=== PATIENT | male | born 1940 ===

== ENCOUNTER 2019-02-23 11:05 | Emergency (ER) | payer MEDICARE ==
[2019-02-23] MEDS ORDERED: DILTIAZEM 25MG/5ML VIAL IV ONE (11:28)
[2019-02-23 11:37] LABS: BASO % 0.3 % (0-6); EOS % 1.4 % (0-6); GRAN % 69.3 % (47-80); HEMATOCRIT 44.1 % (42.0-52.0); LYMPH % 19.9 % (16-45); MEAN CELL VOLUME 95.5 fl (81-97); MEAN CORPUSCULAR HEMOGLOBIN 30.3 pg (27-33); MEAN CORPUSCULAR HGB CONC 31.7 g/dl (32-36); MEAN PLATELET VOLUME 9.9 fl (7.4-10.4); MONO % 9.1 % (0-9); PLATELET COUNT 380 K/uL (130-400); RED BLOOD COUNT 4.62 M/uL (4.40-5.70); WHITE BLOOD COUNT W/O DIFF 12.1 K/uL (4.2-12.2)
[2019-02-23 11:48] LABS: CREATININE 1.8 mg/dL (0.7-1.2)
[2019-02-23 11:49] LABS: BILIRUBIN,TOTAL 0.3 mg/dL (0.2-1.0); TOTAL PROTEIN 7.3 g/dL (6.6-8.7)
[2019-02-23] MEDS ORDERED: DIGOXIN 500MCG/2ML AMP IVP ONE (11:49)
[2019-02-23] MEDS ORDERED: HEPARIN SODIUM 1000 UNIT/1 ML 10ML VIAL IVP ONE (11:49)
[2019-02-23 11:54] LABS: ALB/GLOB RATIO 1.4 (1.1-1.8); ALBUMIN 4.3 g/dL (4.0-5.0)
--- NOTE | 2019-02-23 11:59 | Emergency Department Record ---
History of Present Illness - General Chief Complaint: Dizziness Stated Complaint: LIGHTHEADED Time Seen by Provider: 02/23/19 11:25 Source: Patient Mode of Arrival: Ambulatory Limitations: No limitations - History of Present Illness Initial Comments: pt awakened w kightheadedness htis am. no pain MD Complaint: Dizziness, Lightheadedness Onset/Timin -: Hour(s) Timing: Awoke with symptoms Description: Difficulty walking, Lightheadedness History of Same: No History of Trauma: No Improves With: Nothing Worsens With: Nothing Associated Symptoms: Denies other symptoms - Yasmani Coma Scale Eye Response: (4) Open spontaneously Motor Response: (6) Obeys commands Verbal Response: (5) Oriented Yasmani Total: 15 - Symptoms of Stroke Onset of Symptoms Date: 02/23/19 Symptom Onset Unknown: Yes Symptoms of stroke: Dizziness, Unsteady When Walking - Related Data Home Medications Medication Instructions Recorded Confirmed Last Taken Bisoprol/Hydrochlorothiazide 1 each PO DAILY 02/23/19 02/23/19 02/23/19 [Bisoprolol-Hctz 5-6.25 mg Tab] Lisinopril 30 mg PO DAILY 02/23/19 02/23/19 02/23/19 Allergies Allergy/AdvReac Type Severity Reaction Status Date / Time No Known Drug Allergies Allergy Verified 02/23/19 11:25 Travel Screening - Travel/Exposure Within Last 30 Days Have you traveled within the last 30 days?: No Review of Systems Reviewed: No additional complaints except as noted below Constitutional: Reports: As per HPI, Weakness. Denies: Chills, Fever, Malaise, Night sweats, Weight change Eyes: Reports: As per HPI. Denies: Eye discharge, Eye pain, Photophobia, Vision change ENT: Reports: As per HPI. Denies: Congestion, Dental pain, Ear pain, Epistaxis , Hearing loss, Throat pain Respiratory: Reports: As per HPI. Denies: Cough, Dyspnea, Hemoptysis, Stridor, Wheezes Cardiovascular: Reports: As per HPI. Denies: Arrhythmia, Chest pain, Dyspnea on exertion, Edema, Murmurs, Orthopnea, Palpitations, Paroxysmal nocturnal dyspnea, Rheumatic Fever, Syncope Endocrine: Reports: As per HPI. Denies: Fatigue, Heat or cold intolerance, Polydipsia, Polyuria Gastrointestinal: Reports: As per HPI. Denies: Abdominal pain, Constipation, Diarrhea, Hematemesis, Hematochezia, Melena, Nausea, Vomiting Genitourinary: Reports: As per HPI. Denies: Dysuria, Frequency, Hematuria, Incontinence, Retention, Testicular pain, Testicular mass, Urgency Musculoskeletal: Reports: As per HPI. Denies: Arthralgia, Back pain, Gout, Joint swelling, Myalgia, Neck pain Skin: Reports: As per HPI. Denies: Bruising, Change in color, Change in hair/ nails, Lesions, Pruritus, Rash Neurological: Reports: As per HPI. Denies: Abnormal gait, Confusion, Headache, Numbness, Paresthesias, Seizure, Tingling, Tremors, Vertigo, Weakness Psychiatric: Reports: As per HPI. Denies: Anxiety, Auditory hallucinations, Depression, Homicidal thoughts, Suicidal thoughts, Visual hallucinations Hematological/Lymphatic: Reports: As per HPI. Denies: Anemia, Blood Clots, Easy bleeding, Easy bruising, Swollen glands Past Medical History - SOCIAL HISTORY Smoking Status: Current every day smoker Alcohol Use: None Drug Use: None - RESPIRATORY Hx Respiratory Disorders: No - CARDIOVASCULAR Hx Cardio Disorders: Yes Hx Hypertension: Yes - NEURO Hx Neuro Disorders: No - GI Hx GI Disorders: No - Hx Genitourinary Disorders: No - ENDOCRINE Hx Endocrine Disorders: No - MUSCULOSKELETAL Hx Musculoskeletal Disorders: No - PSYCH Hx Psych Problems: No - HEMATOLOGY/ONCOLOGY Hx Hematology/Oncology Disorders: No Family Medical History Any Significant Family History?: No Physical Exam - General General Appearance: Alert, Oriented x3, Cooperative, Moderate distress - Head Head exam: Normal inspection - Eye Eye exam: Normal appearance, PERRL, EOMI Pupils: Normal accommodation - ENT ENT exam: Normal exam, Mucous membranes moist, Normal external ear exam, Normal orophraynx, TM's normal bilaterally Ear exam: Normal external inspection. negative: External canal tenderness Nasal Exam: Normal inspection. negative: Discharge, Sinus tenderness Mouth exam: Normal external inspection, Tongue normal Teeth exam: Normal inspection. negative: Dental caries Throat exam: Normal inspection. negative: Tonsillar erythema, Tonsillar exudate - Neck Neck exam: Normal inspection, Full ROM. negative: Tenderness - Respiratory Respiratory exam: Normal lung sounds bilaterally. negative: Respiratory distress - Cardiovascular Cardiovascular Exam: Normal heart sounds, Irregular rhythm, Tachycardia - GI/Abdominal GI/Abdominal exam: Soft, Normal bowel sounds. negative: Tenderness - Rectal Rectal exam: Deferred - exam: Deferred - Extremities Extremities exam: Normal inspection, Full ROM, Normal capillary refill. negative: Tenderness - Back Back exam: Reports: Normal inspection, Full ROM. Denies: Muscle spasm, Rash noted, Tenderness - Neurological Neurological exam: Alert, CN II-XII intact, Normal gait, Oriented X3 - Psychiatric Psychiatric exam: Normal affect, Normal mood - Skin Skin exam: Dry, Intact, Normal color, Warm Course Vital Signs 02/23/19 02/23/19 02/23/19 11:09 11:33 11:40 Pulse Rate 126 H Pulse Rate [ 123 H 105 H Broth Mixer ] Respiratory 18 18 18 Rate Blood Pressure 69/58 Blood Pressure 70/57 90/53 [Right Arm] Pulse Ox 97 96 100 - Reevaluation(s) Reevaluation #1: 02/23/19 12:00 pt had initial bp of 69/ ekg showed afib at 121. pressure came up to 90 w fluids. cardioversion considered. pt given 5 cardizem rate slowed to 102 but pressure dropped to 69/. cardioversion considered however heart rate does not explain low pressure. d/w dr garcia who agreed to not cardiovert as rate is not explanatory of bp. he suggested digoxin and immediate transfer. Medical Decision Making - Lab Data Result diagrams: 02/23/19 11:20 02/23/19 11:20 Lab Results 02/23/19 Range/Units 11:20 WBC 12.1 (4.2-12.2) K/uL RBC 4.62 (4.40-5.70) M/uL Hgb 14.0 (14.0-18.0) gm/dl Hct 44.1 (42.0-52.0) % MCV 95.5 (81-97) fl MCH 30.3 (27-33) pg MCHC 31.7 L (32-36) g/dl RDW 13.0 (11.5-14.5) % Plt Count 380 (130-400) K/uL MPV 9.9 (7.4-10.4) fl Gran % 69.3 (47-80) % Lymphocytes % 19.9 (16-45) % Monocytes % 9.1 H (0-9) % Eosinophils % 1.4 (0-6) % Basophils % 0.3 (0-6) % Critical Care Time Critical Care Time: Yes Total Critical Care Time: 60 Disposition Disposition: Transfer Clinical Impression: Atrial complex, premature, New onset atrial fibrillation Hypotension Qualifiers: Hypotension type: unspecified hypotension type Qualified Code(s): I95.9 - Hypotension, unspecified Disposition: Acute Care Hospital Transfer Transfer To: [facility] Reason For Transfer: needs recovery operator Accepting Physician: eliud persaud and radha Time Discussed w/Accepting Physician: 11:59 Forms: Patient Portal Access Quality - Quality Measures Quality Measures: N/A - Blood Pressure Screening Does Patient Have Any of the Following: No Blood Pressure Classification: Normal BP Reading Systolic Measurement: 69 Diastolic Measurement: 58 Screening for High Blood Pressure: < Normal BP, F/U Not Required > [G8783]
[2019-02-23] MEDS ORDERED: HEPARIN SODIUM/D5W 25,000 UNITS/500 ML BAG IV SCH (12:00)
== END 2019-02-23 12:48 | disposition short-term general hospital (02) ==
LOC: ER 11:05
DX: I49.1 Atrial premature depolarization (principal); I48.91 Unspecified atrial fibrillation; I95.9 Hypotension, unspecified; F17.210 Nicotine dependence, cigarettes, uncomplicated
CPT/HCPCS: 80053; 84484; 85025; 85730; 93005; 93010; 96365; 96375; 99291

== ENCOUNTER 2019-03-14 14:00 | Emergency (ER) | payer MEDICARE ==
--- NOTE | 2019-03-14 14:11 | Emergency Department Record ---
History of Present Illness - General Chief Complaint: Syncope Stated Complaint: BLOOD PRESSURE,LIGHTHEADED Time Seen by Provider: 03/14/19 14:05 Source: Patient Mode of Arrival: Ambulatory Limitations: No limitations, Physical limitation - History of Present Illness Initial Comments: 78 yo male presents feeling lightheaded on an off the last few days. He presented to the ED for a "blood pressure" check but passed out in triage. He was noted to have an irregular rate with pauses on the monitor. No chest pain. He states he has COPD and seems to be at his baseline shortness of breath. He states he has seen the metaphysician at [facility] recently. The patient was seen on 02/23/19 for afib, hypotension. He was sent to [facility] [facility] for further work up. The patient is on Eliquis for the afib MD Complaint: Loss of consciousness -: Minutes(s) Prodromal Symptoms: Lightheaded -: Second(s) Injuries Sustained Associated with Event: None Current Symptoms: None History: Other Context: At rest Treatments Prior to Arrival: None - [place] Coma Scale Eye Response: (4) Open spontaneously Motor Response: (6) Obeys commands Verbal Response: (5) Oriented Yasmani Total: 15 - Related Data Home Medications Medication Instructions Recorded Confirmed Last Taken Albuterol Sulfate [Proair Hfa] 1 - 2 puff IH .EVERY 4-6 HOURS PRN 03/14/1903/1403/14/19 Apixaban [Eliquis] 5 mg PO BID 03/14/19 03/14/19 03/14/19 Allergies Allergy/AdvReac Type Severity Reaction Status Date / Time No Known Drug Allergies Allergy Verified 02/23/19 11:25 Review of Systems Constitutional: Reports: Weakness. Denies: Chills Eyes: Denies: Eye discharge ENT: Denies: Congestion, Throat pain Respiratory: Reports: Cough, Dyspnea Cardiovascular: Reports: Dyspnea on exertion, Palpitations, Syncope. Denies: Chest pain Endocrine: Reports: Fatigue Gastrointestinal: Denies: Abdominal pain, Diarrhea, Nausea, Vomiting Genitourinary: Denies: Dysuria, Frequency, Hematuria Musculoskeletal: Denies: Arthralgia, Back pain, Myalgia Skin: Denies: Bruising, Change in color, Rash Neurological: Denies: Headache Psychiatric: Denies: Anxiety Hematological/Lymphatic: Denies: Easy bleeding, Easy bruising Past Medical History - SOCIAL HISTORY Smoking Status: Current every day smoker Drug Use: None - RESPIRATORY Hx Respiratory Disorders: No - CARDIOVASCULAR Hx Cardio Disorders: Yes Hx Hypertension: Yes - NEURO Hx Neuro Disorders: No - GI Hx GI Disorders: No - Hx Genitourinary Disorders: No - ENDOCRINE Hx Endocrine Disorders: No - MUSCULOSKELETAL Hx Musculoskeletal Disorders: No - PSYCH Hx Psych Problems: No - HEMATOLOGY/ONCOLOGY Hx Hematology/Oncology Disorders: No Physical Exam - General General Appearance: Alert, Oriented x3, Cooperative, No acute distress Limitations: No limitations - Head Head exam: Atraumatic, Normal inspection - Eye Eye exam: Normal appearance, Conjunctival injection - ENT ENT exam: Normal exam Ear exam: Normal external inspection Nasal Exam: Normal inspection Mouth exam: Normal external inspection - Neck Neck exam: Normal inspection - Respiratory Respiratory exam: Rhonchi, Wheezes. negative: Normal lung sounds bilaterally - Cardiovascular Cardiovascular Exam: Bradycardia, Irregular rhythm, Tachycardia. negative: Regular rate, Normal rhythm, Normal heart sounds Peripheral Pulses: 2+: Radial (R), Radial (L) - GI/Abdominal GI/Abdominal exam: Soft. negative: Tenderness - Rectal Rectal exam: Deferred - exam: Deferred - Extremities Extremities exam: Normal inspection. negative: Pedal edema, Tenderness - Back Back exam: Denies: CVA tenderness (R), CVA tenderness (L) - Neurological Neurological exam: Alert, Oriented X3 - Psychiatric Psychiatric exam: Anxious - Skin Skin exam: Dry, Intact, Normal color, Warm Course - Reevaluation(s) Reevaluation #1: The patient had two brief witnessed syncopal spells on arrival. 03/14/19 14:12 EKG #1: 14:06 Rate: 85 Rhythm: sinus Huntly: N Intervals: Qtc 475 ST segments: no acute changes, ectopy Prior: 03/08 EKG #2: 14:07 Rate: 66 Rhythm: afib Huntly: N Intervals: N ST segments: No acute changes Prior: EMR reviewed from the 02/23/19 visit 03/14/19 14:24 The patient is now resting on the gurney without symptoms in NSR rate 66. 03/14/19 14:35 No acute changes on the CBC or Coags 03/14/19 14:52 The Troponin is normal The CXR was reviewed with hyperinflation 03/14/19 15:21 Dr Florentino accepts the patient for transfer to [facility] at this time Medical Decision Making - Lab Data Result diagrams: 03/14/19 14:10 03/14/19 14:10 Disposition Disposition: Transfer Clinical Impression: Syncope Disposition: Acute Care Hospital Transfer Transfer To: [facility] Reason For Transfer: Syncope Accepting Physician: Mishel Time Discussed w/Accepting Physician: 15:21 Condition: (2) Stable Forms: Patient Portal Access Time of Disposition: 14:21 Quality - Quality Measures Quality Measures: N/A - Blood Pressure Screening Does Patient Have Any of the Following: Active Dx of HTN Blood Pressure Classification: Pre-Hypertensive BP Reading Systolic Measurement: 154 Diastolic Measurement: 82 Screening for High Blood Pressure: Patient Exclusion, Hx of HTN [G9744]
[2019-03-14 14:20] LABS: BASO % 0.3 % (0-6); EOS % 1.7 % (0-6); GRAN % 72.6 % (47-80); HEMATOCRIT 42.7 % (42.0-52.0); HEMOGLOBIN 13.4 gm/dl (14.0-18.0); LYMPH % 17.2 % (16-45); MEAN CELL VOLUME 95.5 fl (81-97); MEAN CORPUSCULAR HGB CONC 31.4 g/dl (32-36); MEAN PLATELET VOLUME 9.2 fl (7.4-10.4); MONO % 8.2 % (0-9); PLATELET COUNT 390 K/uL (130-400); RED BLOOD COUNT 4.47 M/uL (4.40-5.70); RED CELL DISTRIBUTION WIDTH 13.1 % (11.5-14.5); WHITE BLOOD COUNT W/O DIFF 11.3 K/uL (4.2-12.2)
[2019-03-14 14:21] LABS: MEAN CORPUSCULAR HEMOGLOBIN 29.9 pg (27-33)
[2019-03-14 14:32] LABS: BLOOD UREA NITROGEN 24 mg/dL (8-23)
[2019-03-14 14:33] LABS: CREATININE 1.4 mg/dL (0.7-1.2); EST GLOMERULAR FILTRATION RATE 52 mL/min; TOTAL PROTEIN 7.1 g/dL (6.6-8.7)
[2019-03-14 14:34] LABS: PARTIAL THROMBOPLASTIN TIME 28.6 SECONDS (24.5-39.1); PROTHROMBIN TIME (PATIENT) 9.8 SECONDS (9.5-12.1)
[2019-03-14 14:35] LABS: GLUCOSE,RANDOM 155 mg/dL (74-109)
[2019-03-14 14:38] LABS: ALB/GLOB RATIO 1.4 (1.1-1.8); ALBUMIN 4.2 g/dL (4.0-5.0); ALKALINE PHOSPHATASE 89 U/L (40-129); ALT/SGPT 18 U/L (<41); AST/SGOT 22 U/L (10.0-50.0)
--- NOTE | 2019-03-17 09:44 | RADIOLOGY REPORT ---
EXAM: PORTABLE CHEST HISTORY: SYNCOPE. TECHNIQUE: A portable frontal view of the chest was obtained. Comparison: Chest radiograph 05/16/16. FINDINGS: The cardiac silhouette is within normal size limits. The thoracic aorta is calcified. The lungs are hyperinflated. Mild left basilar opacity. Otherwise, no significant focal pulmonary opacification. No significant pleural fluid collection or visible pneumothorax. The lungs are hyperinflated. IMPRESSION: 1. PULMONARY HYPERINFLATION COMPATIBLE WITH COPD. 2. MILD LEFT BASILAR OPACITY MOST SUGGESTIVE OF ATELECTASIS. JOB NUMBER: [id number] [facility]
== END 2019-03-14 16:01 | disposition short-term general hospital (02) ==
LOC: ER 14:00
DX: R55 Syncope and collapse (principal); J44.9 Chronic obstructive pulmonary disease, unspecified; I48.91 Unspecified atrial fibrillation; I10 Essential (primary) hypertension; F17.210 Nicotine dependence, cigarettes, uncomplicated; Z79.01 Long term (current) use of anticoagulants
CPT/HCPCS: 71045; 80053; 83735; 84484; 85025; 85610; 85730; 93005; 93010; 99285

== ENCOUNTER 2019-09-27 16:09 | Inpatient (IN) | payer MEDICARE ==
--- NOTE | 2019-09-27 17:01 | Emergency Department Record ---
History of Present Illness - General Chief Complaint: Hypertension Stated Complaint: HIGH BLOOD PRESSURE Time Seen by Provider: 09/27/19 16:39 Source: Patient Mode of Arrival: Ambulatory Limitations: No limitations - History of Present Illness Initial Comments: The patient is here due to not feeling well this AM. He normally gets up at noon and noticed that he did not feel well. He states he just felt weak all over which is gone now. The patient has had a cough but he states it is chronic. He denies any CP, SOB, ELIAZAR, fever, PATTERSON, back pain, or any balance issues. The patient came to the hospital to get his BP checked and somehow ended up in the ER. Presently he feels back to normal. MD Complaint: Other Onset/Timin -: Hour(s) History of Same: Yes History of Trauma: No Improves With: Nothing Worsens With: Nothing Associated Symptoms: Cough, Weakness - Yasmani Coma Scale Eye Response: (4) Open spontaneously Motor Response: (6) Obeys commands Verbal Response: (5) Oriented Yasmani Total: 15 - Related Data Allergies Allergy/AdvReac Type Severity Reaction Status Date / Time No Known Drug Allergies Allergy Verified 09/27/19 16:17 Travel Screening - Travel/Exposure Within Last 30 Days Have you traveled within the last 30 days?: No Review of Systems Constitutional: Reports: Malaise. Denies: Chills, Fever Eyes: Denies: Eye discharge ENT: Denies: Congestion, Dental pain Respiratory: Reports: Cough. Denies: Dyspnea Cardiovascular: Denies: Arrhythmia, Chest pain Endocrine: Reports: Fatigue Gastrointestinal: Denies: Nausea Genitourinary: Denies: Dysuria Musculoskeletal: Denies: Arthralgia Skin: Denies: Bruising Past Medical History - SOCIAL HISTORY Smoking Status: Current every day smoker Alcohol Use: None Drug Use: None - RESPIRATORY Hx Respiratory Disorders: Yes Hx COPD: Yes - CARDIOVASCULAR Hx Cardio Disorders: Yes Hx Hypertension: Yes Hx Irregular Heartbeat: Yes (afib) - NEURO Hx Neuro Disorders: No - GI Hx GI Disorders: No - Hx Genitourinary Disorders: No - ENDOCRINE Hx Endocrine Disorders: No - MUSCULOSKELETAL Hx Musculoskeletal Disorders: No - PSYCH Hx Psych Problems: No - HEMATOLOGY/ONCOLOGY Hx Hematology/Oncology Disorders: No Family Medical History Any Significant Family History?: No Physical Exam - General General Appearance: Alert, Oriented x3, Cooperative, No acute distress - Head Head exam: Atraumatic, Normocephalic, Normal inspection - Eye Eye exam: Normal appearance, PERRL - ENT Throat exam: Normal inspection. negative: Tonsillar erythema, Tonsillar exudate - Neck Neck exam: Normal inspection, Full ROM. negative: Tenderness - Respiratory Respiratory exam: Decreased breath sounds. negative: Normal lung sounds bilaterally, Accessory muscle use, Respiratory distress, Rhonchi, Stridor, Wheezes - Cardiovascular Cardiovascular Exam: Regular rate, Normal rhythm, Normal heart sounds - GI/Abdominal GI/Abdominal exam: Soft, Normal bowel sounds. negative: Tenderness - Extremities Extremities exam: Normal inspection, Full ROM, Normal capillary refill. negative: Tenderness - Back Back exam: Reports: Normal inspection - Neurological Neurological exam: Alert, Normal gait. negative: Abnormal gait, Motor sensory deficit - Psychiatric Psychiatric exam: negative: Anxious Course Vital Signs 09/27/19 16:11 Temperature 97.5 F L Pulse Rate 101 H Respiratory 28 H Rate Blood Pressure 177/92 Pulse Ox 93 L - Reevaluation(s) Reevaluation #1: The patient is resting comfortably but is still breathing fast with a nasty cough. I did discuss the need for IV Abx's and admission for pneumonia and the patient did agree. I then did discuss the case with Dr. King and he does accept the admission. 09/27/19 18:26 Medical Decision Making - Data Complexity MDM Data: Labs Ordered and/or Reviewed, X-Ray Ordered and/or Reviewed, EKG Ordered and/or Reviewed - Lab Data Result diagrams: 09/27/19 16:20 09/27/19 16:20 - EKG Data -: EKG Interpreted by Pr EKG: No Acute Changes, Unchanged From Previous - Radiology Data Radiology results: Report reviewed (CXR: ground glass opacities RML and LLL.) Disposition Disposition: Admit Clinical Impression: Pneumonia Qualifiers: Pneumonia type: due to unspecified organism Laterality: unspecified laterality Lung location: unspecified part of lung Qualified Code(s): J18.9 - Pneumonia, unspecified organism Disposition: Still a Patient at [facility] Decision to Admit: Admit from ER Decision to Admit Date: 09/27/19 Decision to Admit Time: 18:28 Accepting Physician: Christine Time Discussed w/Accepting Physician: 18:28 Condition: (2) Stable Forms: Patient Portal Access Time of Disposition: 18:28 Quality - Quality Measures Quality Measures: N/A - Blood Pressure Screening View Details: Yes Does Patient Have Any of the Following: Active Dx of HTN Blood Pressure Classification: Hypertensive Reading Systolic Measurement: 177 Diastolic Measurement: 92 Screening for High Blood Pressure: Patient Exclusion, Hx of HTN [G9744]
[2019-09-27 17:13] LABS: ABSOLUTE NEUTROPHIL COUNT 15.58; BASO % 0.1 % (0-6); EOS % 0.4 % (0-6); HEMATOCRIT 46.6 % (42.0-52.0); HEMOGLOBIN 14.7 gm/dl (14.0-18.0); LYMPH % 6.3 % (16-45); MEAN CELL VOLUME 92.8 fl (81-97); MEAN CORPUSCULAR HEMOGLOBIN 29.3 pg (27-33); MEAN CORPUSCULAR HGB CONC 31.5 g/dl (32-36); MEAN PLATELET VOLUME 9.8 fl (7.4-10.4); MONO % 7.3 % (0-9); PLATELET COUNT 400 K/uL (130-400); RED BLOOD COUNT 5.02 M/uL (4.40-5.70); RED CELL DISTRIBUTION WIDTH 13.5 % (11.5-14.5); WHITE BLOOD COUNT W/O DIFF 18.2 K/uL (4.2-12.2)
[2019-09-27 17:23] LABS: BLOOD UREA NITROGEN 18 mg/dL (8-23)
[2019-09-27] MEDS: IPRATROPIUM/ALBUTEROL (0.5MG/3MG) NEB INH SCH ×4 (17:23→22:51)
[2019-09-27 17:24] LABS: CREATININE 1.2 mg/dL (0.7-1.2); EST GLOMERULAR FILTRATION RATE > 60 mL/min
[2019-09-27 17:26] LABS: GLUCOSE,RANDOM 104 mg/dL (74-109)
[2019-09-27 17:27] LABS: PARTIAL THROMBOPLASTIN TIME 29.5 SECONDS (24.5-39.1); PROTHROMBIN TIME (PATIENT) 10.3 SECONDS (9.5-12.1)
[2019-09-27 17:29] LABS: ALB/GLOB RATIO 1.5 (1.1-1.8); ALBUMIN 4.8 g/dL (4.0-5.0); ALKALINE PHOSPHATASE 109 U/L (40-129); ALT/SGPT 16 U/L (<41); AST/SGOT 21 U/L (10.0-50.0)
[2019-09-27 17:33] LABS: PLATELET ESTIMATE NORMAL (NORMAL)
[2019-09-27 17:52] LABS: C-REACTIVE PROTEIN 0.12 mg/dL (<0.5)
--- NOTE | 2019-09-27 18:10 | RADIOLOGY REPORT ---
EXAMINATION: Two View Chest Radiographs EXAM DATE: 09/27/2019 6:02 PM TECHNIQUE: Frontal and lateral views INDICATION: ELIAZAR and cough COMPARISON: 03/14/2019 ENCOUNTER: Not applicable FINDINGS: Hyperinflated lungs. Heart size normal. Small focal groundglass opacities right midlung and left lowe r lobe. IMPRESSION: Hyperinflated lungs. Focal ground glass opacities right midlung and left lower lobe. Dictated by: Dia Zhang DO on 09/27/2019 6:08 PM. .
[2019-09-27] MEDS ORDERED: METHYLPREDNISOLONE PF 125MG/VIAL IVP ONE (18:19)
[2019-09-27] MEDS ORDERED: ALBUTEROL SULFATE (0.083%) 2.5 MG/3 ML NEB INH ONE (18:20)
[2019-09-27] MEDS ORDERED: AZITHROMYCIN 500 MG in 0.9 % SODIUM CHLORIDE 250ML 250 ML IVPB ONE (18:27)
[2019-09-27] MEDS ORDERED: CEFTRIAXONE 1GM/50ML BAG 1 GM/50 ML BAG IVPB ONE (18:27)
[2019-09-27] MEDS ORDERED: ACETAMINOPHEN 325 MG TAB PO PRN (19:03)
[2019-09-27] MEDS: CEFTRIAXONE SODIUM 1 GM in 0.9 % SODIUM CHLORIDE 100ML 100 ML IVPB SCH (19:13)
[2019-09-27] MEDS: APIXABAN 5MG TABLET PO SCH (21:26)
[2019-09-28] MEDS ORDERED: NICOTINE 21 MG/24 HOUR PATCH TD SCH (04:15)
[2019-09-28] MEDS: CEFTRIAXONE SODIUM 1 GM in 0.9 % SODIUM CHLORIDE 100ML 100 ML IVPB SCH ×2 (06:40→19:54)
[2019-09-28 06:42] LABS: ABSOLUTE NEUTROPHIL COUNT 13.15; HEMATOCRIT 38.9 % (42.0-52.0); HEMOGLOBIN 12.2 gm/dl (14.0-18.0); LYMPH % 2.7 % (16-45); MEAN CELL VOLUME 91.7 fl (81-97); MEAN CORPUSCULAR HGB CONC 31.4 g/dl (32-36); MEAN PLATELET VOLUME 9.7 fl (7.4-10.4); MONO % 0.7 % (0-9); PLATELET COUNT 331 K/uL (130-400); RED BLOOD COUNT 4.24 M/uL (4.40-5.70); RED CELL DISTRIBUTION WIDTH 13.5 % (11.5-14.5); WHITE BLOOD COUNT W/O DIFF 13.6 K/uL (4.2-12.2)
[2019-09-28 06:45] LABS: MEAN CORPUSCULAR HEMOGLOBIN 28.7 pg (27-33)
[2019-09-28 07:32] LABS: BLOOD UREA NITROGEN 21 mg/dL (8-23); CREATININE 1.1 mg/dL (0.7-1.2); EST GLOMERULAR FILTRATION RATE > 60 mL/min; GLUCOSE,RANDOM 143 mg/dL (74-109)
[2019-09-28] MEDS: IPRATROPIUM/ALBUTEROL (0.5MG/3MG) NEB INH SCH ×7 (08:50→21:53)
[2019-09-28] MEDS ORDERED: HYDROCHLOROTHIAZIDE PO SCH (10:00)
[2019-09-28] MEDS ORDERED: [UNRECOGNIZED DRUG - OTHER] PO SCH (10:00)
[2019-09-28] MEDS ORDERED: BISOPROLOL PO SCH (10:00)
[2019-09-28] MEDS: NICOTINE 21 MG/24 HOUR PATCH TD SCH (10:34)
[2019-09-28] MEDS: METHYLPREDNISOLONE PF 125MG/VIAL IVP SCH (10:46)
[2019-09-28] MEDS: APIXABAN 5MG TABLET PO SCH ×2 (10:47→21:26)
[2019-09-28] MEDS: NICOTINE14 MG/24 HOUR PATCH TD SCH (10:47)
[2019-09-28] MEDS: DILTIAZEM HCL 120 MG ER CAPSULE PO SCH (10:47)
[2019-09-28] MEDS: REMOVE PATCH 1 EACH MISC TD SCH (10:47)
[2019-09-28] MEDS: FLECAINIDE ACETATE 50 MG TABLET PO SCH ×2 (10:47→21:26)
--- NOTE | 2019-09-28 13:36 | History & Physical ---
History of Present Illness - Date of Service Date of Service for History & Physical: 09/28/19 - History of Present Illness Admitting Diagnosis: 1. Acute Pneumonia History of Present Illness: 78 y/o male presented to ED for reports of feeling weak and more tired than normal and wanted his blood pressure checked. Upon arrival he was observed to be short of breath and was worked up. Patient denied fevers or chills, does have a chronic cough but reported it was not different than usual. Does report a baseline shortness of breath but reports is not any worse than usual. Is a current every day smoker- 1/2 PPD. Past medical history includes cigarette smok er, COPD, HTN, a-fib and subjective reports of weight loss. While in ED was afebile, dyspneic with RR 28, pulse 101, BP 177/92, SPO2 93% RA. WBC 18.2 with neutrophils 89. Coag panel normal. Troponin <0.010. Procalcitonin 0.046. CXR- hyperinflated lungs with small focal round glass opacities RML and LLL. EKG NSR with left atrial enlargement and right ventricular hypertrophy, no acute changes from previous. Admitted for IV antibiotics, IV steroids. 09/28/19- sitting in chair, in no obvious distress, no new complaints. Reports his cough is no different than it usually is. Is feeling a little weak but otherwise feels his baseline. Is not oxygen dependent. Has not smoked in 2 days Travel Screening - Travel/Exposure Within Last 30 Days Have you traveled within the last 30 days?: No - Travel/Exposure Within Last Year Have you traveled outside the [place] in the last year?: No - Additonal Travel Details Have you been exposed to anyone with a communicable illness?: No - Travel Symptoms Symptom Screening: Fever (Subjective) Review of Systems Constitutional: Reports: Malaise. Denies: Chills, Fever Eyes: Denies: Eye discharge ENT: Denies: Congestion, Dental pain Respiratory: Reports: Cough. Denies: Dyspnea Cardiovascular: Denies: Arrhythmia, Chest pain Endocrine: Reports: Fatigue Gastrointestinal: Denies: Nausea Genitourinary: Denies: Dysuria Musculoskeletal: Denies: Arthralgia Skin: Denies: Bruising Past Medical History - SOCIAL HISTORY Smoking Status: Current every day smoker Alcohol Use: Rare Drug Use: None - RESPIRATORY Hx Respiratory Disorders: Yes Hx COPD: Yes - CARDIOVASCULAR Hx Cardio Disorders: Yes Hx Hypertension: Yes Hx Irregular Heartbeat: Yes (afib) - NEURO Hx Neuro Disorders: No - GI Hx GI Disorders: No - Hx Genitourinary Disorders: No - ENDOCRINE Hx Endocrine Disorders: No - MUSCULOSKELETAL Hx Musculoskeletal Disorders: No - PSYCH Hx Psych Problems: No - HEMATOLOGY/ONCOLOGY Hx Hematology/Oncology Disorders: No Family Medical History Any Significant Family History?: No H&P Meds/Allergies - Allergies Allergies: Allergies Allergy/AdvReac Type Severity Reaction Status Date / Time No Known Drug Allergies Allergy Verified 09/27/19 16:17 - Home Medications Home Medications Medication Instructions Recorded Confirmed Last Taken Diltiazem HCl [Cardizem Cd] 240 mg PO DAILY 09/28/19 09/28/19 Unknown Flecainide Acetate 50 mg PO BID 09/28/19 09/28/19 Unknown - Active Medications Active Medications: Current Medications Acetaminophen (Tylenol 325mg) 650 mg PO Q6H PRN PRN Reason: PAIN - MILD(1-4)/FEVER Albuterol/Ipratropium (Duoneb) 3 ml INH RESP.Q4H.WA [facility] Last Admin: 09/28/19 11:42 Dose: 3 ml Documented by: Apixaban (Eliquis) 5 mg PO BID [facility] Last Admin: 09/28/19 10:47 Dose: 5 mg Documented by: Diltiazem HCl (Cardizem Cd) 240 mg PO DAILY [facility] Last Admin: 09/28/19 10:47 Dose: 240 mg Documented by: Flecainide Acetate (Flecainide Acetate) 50 mg PO BID [facility] Last Admin: 09/28/19 10:47 Dose: 50 mg Documented by: Ceftriaxone Sodium 1 gm/ (Sodium Chloride) 100 mls @ 100 mls/hr IVPB Q12H [facility] Stop: 10/02/19 19:04 Last Infusion: 09/28/19 08:02 Dose: Infused Documented by: Azithromycin 500 mg/ Sodium (Chloride) 250 mls @ 250 mls/hr IVPB Q24H [facility] Stop: 10/03/19 18:31 Methylprednisolone Sodium Succinate (Solu-Medrol) 60 mg IVP DAILY [facility] Last Admin: 09/28/19 10:46 Dose: 60 mg Documented by: Miscellaneous (Remove Patch) 1 each TD Q24H [facility] Last Admin: 09/28/19 10:47 Dose: 1 each Documented by: Nicotine (Nicotine 21mg) 1 patch TD Q24H [facility] Last Admin: 09/28/19 10:34 Dose: Not Given Documented by: Nicotine (Nicotine 14mg) 1 patch TD DAILY [facility] Last Admin: 09/28/19 10:47 Dose: 1 patch Documented by: Physical Exam - Vital Signs Vital Signs: Vital Signs - Last 24 Hrs Temp Pulse Pulse Resp BP BP Pulse Ox 09/28/19 11:43 90 20 97 09/28/19 09:00 20 09/28/19 08:00 99.1 F 90 30 H 164/78 92 L 09/28/19 04:00 97.9 F 79 22 138/66 94 L 09/28/19 00:00 97.9 F 77 24 141/61 94 L 09/27/19 21:52 86 24 94 L 09/27/19 19:19 85 09/27/19 19:01 98.6 F 89 20 166/66 96 09/27/19 18:40 81 24 161/79 100 09/27/19 18:37 88 20 93 L 09/27/19 17:32 84 26 H 162/87 98 09/27/19 17:23 84 18 99 09/27/19 16:11 97.5 F L 101 H 28 H 177/92 93 L - General General Appearance: Alert, Oriented x3, Cooperative, No acute distress Limitations: No limitations - Head Head exam: Atraumatic, Normocephalic, Normal inspection - Eye Eye exam: Normal appearance, PERRL - ENT Throat exam: Normal inspection. negative: Tonsillar erythema, Tonsillar exudate - Neck Neck exam: Normal inspection, Full ROM. negative: Tenderness - Respiratory Respiratory exam: Decreased breath sounds, Prolonged expiratory, Rhonchi. negative: Normal lung sounds bilaterally, Accessory muscle use, Respiratory distress, Stridor, Wheezes - Cardiovascular Cardiovascular Exam: Regular rate, Normal rhythm, Normal heart sounds Peripheral Pulses: 2+: Dorsalis Pedis (R), Dorsalis Pedis (L) - GI/Abdominal GI/Abdominal exam: Soft, Normal bowel sounds. negative: Tenderness - Extremities Extremities exam: Normal inspection, Full ROM, Normal capillary refill. negativ e: Tenderness - Back Back exam: Reports: Normal inspection - Neurological Neurological exam: Alert, Normal gait. negative: Abnormal gait, Motor sensory deficit - Psychiatric Psychiatric exam: negative: Anxious Results - Labs Result Diagrams: 09/28/19 06:15 09/28/19 06:15 Labs Last 24 Hours: Laboratory Results - last 24 hr 09/27/19 09/27/19 09/27/19 16:20 16:20 16:20 WBC 18.2 H RBC 5.02 Hgb 14.7 Hct 46.6 MCV 92.8 MCH 29.3 MCHC 31.5 L RDW 13.5 Plt Count 400 MPV 9.8 Neutrophils % 89.0 H Band Neutrophils % 2.0 Lymphocytes % 6.3 L Monocytes % 7.3 Eosinophils % 0.4 Basophils % 0.1 Absolute Neutrophils 15.58 Lymphocytes 5.0 L Monocytes 4.0 Platelet Estimate Normal RBC Morphology Normal PT 10.3 INR 1.0 APTT 29.5 Sodium 141 Potassium 4.0 Chloride 98 Carbon Dioxide 32.0 H Anion Gap 11.0 BUN 18 Creatinine 1.2 Estimated GFR > 60 Random Glucose 104 Calcium 9.8 Total Bilirubin 0.30 AST 21 ALT 16 Alkaline Phosphatase 109 Troponin T < 0.010 C-Reactive Protein NT-Pro-B Natriuret Pep 110.10 Total Protein 8.0 Albumin 4.8 Globulin 3.2 Albumin/Globulin Ratio 1.5 Procalcitonin 09/27/19 09/28/19 09/28/19 16:20 06:15 06:15 WBC 13.6 H RBC 4.24 L Hgb 12.2 L Hct 38.9 L MCV 91.7 MCH 28.7 MCHC 31.4 L RDW 13.5 Plt Count 331 MPV 9.7 Neutrophils % Band Neutrophils % Lymphocytes % 2.7 L Monocytes % 0.7 Eosinophils % 0.0 Basophils % 0.0 Absolute Neutrophils 13.15 Lymphocytes Monocytes Platelet Estimate RBC Morphology PT INR APTT Sodium 138 Potassium 4.7 H Chloride 100 Carbon Dioxide 26.0 Anion Gap 12.0 BUN 21 Creatinine 1.1 Estimated GFR > 60 Random Glucose 143 H Calcium 9.5 Total Bilirubin AST ALT Alkaline Phosphatase Troponin T C-Reactive Protein 0.12 NT-Pro-B Natriuret Pep Total Protein Albumin Globulin Albumin/Globulin Ratio Procalcitonin 0.046 - Imaging and Cardiology Chest x-ray Status: Report reviewed VTE H&P Assessment - Risk for VTE Risk for VTE: Yes Risk Level: Moderate Risk Assessment Date: 09/28/19 Risk Assessment Time: 13:39 VTE Orders Placed or Will Be Placed: Yes Plan - Inpatient Certification Inpatient Certification: Admit to inpatient care: Based on my medical assessment, after consideration of patient's risk factors (age, co-morbidities and patient presenting symptoms and acuity), I expect that this patient will remain in the hospital greater than or equal to two midnights and that the services needed warrant inpatient care because: Patient Risk Factors: [advanced age, multi-lobar pneumonia] Estimated length of stay: [48-72 hours] The patient may reasonably be expected to be discharged or transferred to a hospital within 96 hours after admission to [facility]. Services needed: [Nursing, IV antibiotic, IV steroids, telemetry] Post hospital care (if known): [] I certify that my determination is in accordance with my understanding of Medicare requirements for reasonable and necessary inpatient services. 09/28/19 13:49 - Detailed Diagnosis and Plan (1) Pneumonia Current Visit: Yes Status: Acute Qualifiers: Pneumonia type: due to unspecified organism Laterality: right Lung location: middle lobe of lung Qualified Code(s): J18.1 - Lobar pneumonia, unspecified organism Base Code: J18.9 - PNEUMONIA, UNSPECIFIED ORGANISM Comment: 09/28/19 - CXR in ED- hyperinflation, small focal ground glass opacitiy RML, LLL - No home COPD maintenance medications, is not oxygen dependent - WBC 18.2, procalcitonin 0.046 - [id number]% RA - Duoneb Q4hr [place], Azithromycin 500mg QD, Rocephin 1gm BID, Solumedrol 60mg QD - Tele- NSR - CBC, CMP in am - Consider converting to Predisone in am and starting Breo in preparation for discharge (2) COPD (chronic obstructive pulmonary disease) Current Visit: Yes Status: Acute Base Code: J44.9 - CHRONIC OBSTRUCTIVE PULMONARY DISEASE, UNSPECIFIED Comment: 09/28/19 - Begin Breo tomorrow - Nicotine patch 14mg QD (3) A-fib Current Visit: Yes Status: Acute Base Code: I48.91 - UNSPECIFIED ATRIAL FIBRILLATION Comment: 09/28/19 - Tele - Eliquis 5mg BID, Cardizem CD 240mg QD, Flecanide 50mg BID (4) DVT prophylaxis Current Visit: Yes Status: Acute Base Code: Z29.9 - ENCOUNTER FOR PROPHYLACTIC MEASURES, UNSPECIFIED Comment: 09/28/19 - Eliquis 5mg BID (5) Full code status Current Visit: Yes Status: Acute Base Code: Z78.9 - OTHER SPECIFIED HEALTH STATUS Comment: 09/28/19
[2019-09-28] MEDS ORDERED: AZITHROMYCIN 500 MG in 0.9 % SODIUM CHLORIDE 250ML 250 ML IVPB SCH (18:30)
[2019-09-29 07:07] LABS: HEMATOCRIT 37.8 % (42.0-52.0); HEMOGLOBIN 11.7 gm/dl (14.0-18.0); MEAN CELL VOLUME 92.9 fl (81-97); MEAN CORPUSCULAR HEMOGLOBIN 28.7 pg (27-33); MEAN PLATELET VOLUME 9.5 fl (7.4-10.4); PLATELET COUNT 344 K/uL (130-400); RED BLOOD COUNT 4.07 M/uL (4.40-5.70); RED CELL DISTRIBUTION WIDTH 13.8 % (11.5-14.5); WHITE BLOOD COUNT W/O DIFF 16.9 K/uL (4.2-12.2)
[2019-09-29 07:21] LABS: ALB/GLOB RATIO 1.4 (1.1-1.8); ALBUMIN 3.9 g/dL (4.0-5.0); ALKALINE PHOSPHATASE 84 U/L (40-129); ALT/SGPT 13 U/L (<41); AST/SGOT 18 U/L (10.0-50.0); BILIRUBIN,TOTAL < 0.20 mg/dL (0.2-1.0); BLOOD UREA NITROGEN 31 mg/dL (8-23); CREATININE 1.1 mg/dL (0.7-1.2); EST GLOMERULAR FILTRATION RATE > 60 mL/min; GLUCOSE,RANDOM 119 mg/dL (74-109); TOTAL PROTEIN 6.7 g/dL (6.6-8.7)
[2019-09-29] MEDS: CEFTRIAXONE SODIUM 1 GM in 0.9 % SODIUM CHLORIDE 100ML 100 ML IVPB SCH (08:34)
[2019-09-29] MEDS: CEFTRIAXONE 1GM/50ML BAG 1 GM/50 ML BAG IVPB SCH ×2 (08:41→19:47)
[2019-09-29] MEDS: AZITHROMYCIN 500 MG TABLET PO SCH (10:13)
[2019-09-29] MEDS: DILTIAZEM HCL 120 MG ER CAPSULE PO SCH (10:13)
[2019-09-29] MEDS: NICOTINE 21 MG/24 HOUR PATCH TD SCH (10:14)
[2019-09-29] MEDS: APIXABAN 5MG TABLET PO SCH ×2 (10:14→21:14)
[2019-09-29] MEDS: FLECAINIDE ACETATE 50 MG TABLET PO SCH ×2 (10:14→21:14)
[2019-09-29] MEDS: METHYLPREDNISOLONE PF 125MG/VIAL IVP SCH (10:15)
[2019-09-29] MEDS: NICOTINE14 MG/24 HOUR PATCH TD SCH (10:17)
[2019-09-29] MEDS: REMOVE PATCH 1 EACH MISC TD SCH (10:17)
[2019-09-29] MEDS: IPRATROPIUM/ALBUTEROL (0.5MG/3MG) NEB INH SCH ×6 (10:31→21:54)
--- NOTE | 2019-09-29 14:54 | Physician Progress Note ---
Subjective - Date Date of Physician Progress Note: 09/29/19 - Subjective Subjective Comment: Nursing reports mild agitation and some confusion yesterday, was unaware of his surroundings and was wanting to go out to smoke. No fevers or changes in telemetry readings Objective - Vital Signs Vital Signs: Vital Signs - Last 24 Hrs Temp Pulse Pulse Resp BP BP Pulse Ox 09/29/19 10:30 85 16 09/29/19 09:00 71 16 09/29/19 07:46 97.9 F 71 20 103/55 96 09/29/19 04:00 99.9 F H 91 H 16 139/64 91 L 09/29/19 00:00 98.7 F 89 20 157/70 94 L 09/28/19 21:55 87 20 95 09/28/19 20:00 99.0 F 84 22 141/63 97 09/28/19 19:58 83 18 09/28/19 17:59 79 18 99 09/28/19 15:50 85 24 138/66 96 - General General Appearance: Alert, Oriented x3, Cooperative, No acute distress Limitations: No limitations - Head Head exam: Atraumatic, Normocephalic, Normal inspection - Eye Eye exam: Normal appearance, PERRL - ENT Throat exam: Normal inspection. negative: Tonsillar erythema, Tonsillar exudate - Neck Neck exam: Normal inspection, Full ROM. negative: Tenderness - Respiratory Respiratory exam: Decreased breath sounds, Prolonged expiratory, Rhonchi (cleared with cough), Other (expiratory rub anterior BRIONNA, crackles bilat bases). negative: Normal lung sounds bilaterally, Accessory muscle use, Respiratory distress, Stridor, Wheezes - Cardiovascular Cardiovascular Exam: Regular rate, Normal rhythm, Normal heart sounds Peripheral Pulses: 2+: Dorsalis Pedis (R), Dorsalis Pedis (L) - GI/Abdominal GI/Abdominal exam: Soft, Normal bowel sounds. negative: Tenderness - Extremities Extremities exam: Normal inspection, Full ROM, Normal capillary refill. negative: Tenderness - Back Back exam: Reports: Normal inspection - Neurological Neurological exam: Alert, Normal gait. negative: Abnormal gait, Motor sensory deficit - Psychiatric Psychiatric exam: negative: Anxious Assessment and Plan - Assessment and Plan (1) Pneumonia Current Visit: Yes Status: Acute Qualifiers: Pneumonia type: due to unspecified organism Laterality: right Lung location: middle lobe of lung Qualified Code(s): J18.1 - Lobar pneumonia, unspecified organism Base Code: J18.9 - PNEUMONIA, UNSPECIFIED ORGANISM Comment: 09/29/19 - CXR in ED- hyperinflation, small focal ground glass opacitiy RML, LLL - No home COPD maintenance medications, is not oxygen dependent - WBC 18.2--> 13.6--> 16.9 with relative neutrophil increase, procalcitonin 0.046, recheck today - [id number]% RA - Duoneb Q4hr [place], Azithromycin 500mg QD, Rocephin 1gm BID, Solumedrol 60mg QD - Tele- NSR - CBC am - Consider converting to Predisone in am and starting Breo in preparation for discharge - Little to no clinical improvent today, elevated WBC can be seein in steroid therapy but does have relative neutrophil increase overnight, Tmax overnight 99.9. May need to change to fluoroquinolone if procalcitonin is elevated - Sputum culture (2) COPD (chronic obstructive pulmonary disease) Current Visit: Yes Status: Acute Base Code: J44.9 - CHRONIC OBSTRUCTIVE PULMONARY DISEASE, UNSPECIFIED Comment: 09/29/19 - Begin Breo tomorrow - Nicotine patch 14mg QD (3) A-fib Current Visit: Yes Status: Acute Base Code: I48.91 - UNSPECIFIED ATRIAL FIBRILLATION Comment: 09/29/19 - Tele NSR - Eliquis 5mg BID, Cardizem CD 240mg QD, Flecanide 50mg BID (4) DVT prophylaxis Current Visit: Yes Status: Acute Base Code: Z29.9 - ENCOUNTER FOR IN OPHYLACTIC MEASURES, UNSPECIFIED Comment: 09/29/19 - Eliquis 5mg BID (5) Full code status Current Visit: Yes Status: Acute Base Code: Z78.9 - OTHER SPECIFIED HEALTH STATUS Comment: 09/29/19 Results - Labs Result Diagrams: 09/29/19 06:49 09/29/19 06:49 Labs Last 24 Hours: Laboratory Results - last 24 hr 09/29/19 09/29/19 06:49 06:49 WBC 16.9 H RBC 4.07 L Hgb 11.7 L Hct 37.8 L MCV 92.9 MCH 28.7 MCHC 31.0 L RDW 13.8 Plt Count 344 MPV 9.5 Neutrophils % 92.0 H Eosinophils % Not Reportable Basophils % Not Reportable Absolute Neutrophils Not Reportable Lymphocytes 2.0 L Monocytes 6.0 Sodium 143 Potassium 4.3 Chloride 105 Carbon Dioxide 26.0 Anion Gap 12.0 BUN 31 H Creatinine 1.1 Estimated GFR > 60 Random Glucose 119 H Calcium 9.5 Total Bilirubin < 0.20 L AST 18 ALT 13 Alkaline Phosphatase 84 Total Protein 6.7 Albumin 3.9 L Globulin 2.8 Albumin/Globulin Ratio 1.4 DVT/PE Assessment - Risk for VTE Risk for VTE: No Risk Level: Moderate Risk Assessment Date: 09/28/19 Risk Assessment Time: 13:39 VTE Orders Placed or Will Be Placed: Yes - Active Medicaitons Current Medications: Current Medications Acetaminophen (Tylenol 325mg) 650 mg PO Q6H PRN PRN Reason: PAIN - MILD(1-4)/FEVER Albuterol/Ipratropium (Duoneb) 3 ml INH RESP.Q4H.WA [facility] Last Admin: 09/29/19 14:40 Dose: 3 ml Documented by: Apixaban (Eliquis) 5 mg PO BID [facility] Last Admin: 09/29/19 10:14 Dose: 5 mg Documented by: Azithromycin (Zithromax) 500 mg PO DAILY [facility] Last Admin: 09/29/19 10:13 Dose: 500 mg Documented by: Diltiazem HCl (Cardizem Cd) 240 mg PO DAILY [facility] Last Admin: 09/29/19 10:13 Dose: 240 mg Documented by: Flecainide Acetate (Flecainide Acetate) 50 mg PO BID [facility] Last Admin: 09/29/19 10:14 Dose: 50 mg Documented by: CEFTRIAXONE 1GM/50ML BAG (Ceftriaxone 1 Gm-D5w Bag) 1 gm in 50 mls @ 100 mls/hr IVPB Q12H [facility] Last Infusion: 09/29/19 10:08 Dose: Infused Documented by: Methylprednisolone Sodium Succinate (Solu-Medrol) 60 mg IVP DAILY [facility] Last Admin: 09/29/19 10:15 Dose: 60 mg Documented by: Miscellaneous (Remove Patch) 1 each TD Q24H [facility] Last Admin: 09/29/19 10:17 Dose: 1 each Documented by: Nicotine (Nicotine 21mg) 1 patch TD Q24H [facility] Last Admin: 09/29/19 10:14 Dose: 1 patch Documented by: Nicotine (Nicotine 14mg) 1 patch TD DAILY [facility] Last Admin: 09/29/19 10:17 Dose: Not Given Documented by: AMI Plan - Labs Result Diagrams: 09/29/19 06:49 09/29/19 06:49
[2019-09-29 19:45] LABS: URINE APPEARANCE CLEAR; URINE BILIRUBIN NEGATIVE (NEGATIVE); URINE BLOOD SMALL (NEGATIVE); URINE COLOR YELLOW; URINE GLUCOSE (UA) NEGATIVE (NEGATIVE); URINE KETONE NEGATIVE (NEGATIVE); URINE LEUKOCYTE ESTERASE NEGATIVE (NEGATIVE); URINE NITRITE NEGATIVE (NEGATIVE); URINE PROTEIN NEGATIVE (NEGATIVE); URINE UROBILINOGEN 0.2 E.U./dL (0.20 - 1.00)
[2019-09-29 19:55] LABS: URINE EPITHELIAL CELLS 0 - 2 (FEW); URINE RBC 0 - 2 (NONE SEEN); URINE WBC 0 - 2 (0-2/hpf)
[2019-09-30] MEDS ORDERED: DIPHENHYDRAMINE HCL 25 MG CAPSULE PO PRN (02:07)
[2019-09-30] MEDS: IPRATROPIUM/ALBUTEROL (0.5MG/3MG) NEB INH SCH ×5 (05:47→21:47)
[2019-09-30 06:55] LABS: ABSOLUTE NEUTROPHIL COUNT 13.06; HEMATOCRIT 40.3 % (42.0-52.0); HEMOGLOBIN 12.2 gm/dl (14.0-18.0); LYMPH % 5.6 % (16-45); MEAN CELL VOLUME 93.5 fl (81-97); MEAN CORPUSCULAR HEMOGLOBIN 28.3 pg (27-33); MEAN CORPUSCULAR HGB CONC 30.3 g/dl (32-36); MEAN PLATELET VOLUME 9.8 fl (7.4-10.4); MONO % 8.6 % (0-9); PLATELET COUNT 346 K/uL (130-400); RED BLOOD COUNT 4.31 M/uL (4.40-5.70); RED CELL DISTRIBUTION WIDTH 13.9 % (11.5-14.5); WHITE BLOOD COUNT W/O DIFF 15.2 K/uL (4.2-12.2)
[2019-09-30] MEDS: FLECAINIDE ACETATE 50 MG TABLET PO SCH ×2 (09:26→22:07)
[2019-09-30] MEDS: APIXABAN 5MG TABLET PO SCH ×2 (09:27→22:07)
[2019-09-30] MEDS: AZITHROMYCIN 500 MG TABLET PO SCH (09:27)
[2019-09-30] MEDS: NICOTINE 21 MG/24 HOUR PATCH TD SCH (09:28)
[2019-09-30] MEDS: DILTIAZEM HCL 120 MG ER CAPSULE PO SCH (09:28)
[2019-09-30] MEDS: REMOVE PATCH 1 EACH MISC TD SCH (09:29)
[2019-09-30] MEDS: CEFTRIAXONE 1GM/50ML BAG 1 GM/50 ML BAG IVPB SCH (09:32)
[2019-09-30] MEDS: METHYLPREDNISOLONE PF 125MG/VIAL IVP SCH (11:03)
[2019-09-30] MEDS: LEVOFLOXACIN 500MG IVPB 500 MG/100 ML BAG IVPB SCH (11:05)
--- NOTE | 2019-09-30 11:18 | Physician Progress Note ---
Subjective - Date Date of Physician Progress Note: 09/30/19 - Subjective Subjective Comment: Patient reports legs are feeling weak and is noting a more difficult time getting out of bed. Is tolerating amb to BR for ADLs. Reports is coughing and bringing up sputum. Still feels mildly "winded". Objective - Vital Signs Vital Signs: Vital Signs - Last 24 Hrs Temp Pulse Pulse Resp BP BP Pulse Ox 09/30/19 10:04 76 18 97 09/30/19 09:00 99.1 F 84 14 146/68 95 09/30/19 05:48 84 16 09/30/19 00:00 92 H 20 143/69 91 L 09/29/19 21:56 84 16 09/29/19 20:16 22 09/29/19 20:00 98.4 F 95 H 22 165/69 90 L 09/29/19 17:39 80 16 09/29/19 16:10 98.5 F 79 26 H 148/68 92 L 09/29/19 14:40 85 24 09/29/19 11:52 97.6 F 81 21 148/70 94 L - General General Appearance: Alert, Oriented x3, Cooperative, No acute distress Limitations: No limitations - Head Head exam: Atraumatic, Normocephalic, Normal inspection - Eye Eye exam: Normal appearance, PERRL - ENT Throat exam: Normal inspection. negative: Tonsillar erythema, Tonsillar exudate - Neck Neck exam: Normal inspection, Full ROM. negative: Tenderness - Respiratory Respiratory exam: Decreased breath sounds, Other (expiratory rub anterior BRIONNA not appreciated today). negative: Normal lung sounds bilaterally, Accessory muscle use, Respiratory distress, Stridor, Wheezes - Cardiovascular Cardiovascular Exam: Regular rate, Normal rhythm, Normal heart sounds Peripheral Pulses: 2+: Dorsalis Pedis (R), Dorsalis Pedis (L) - GI/Abdominal GI/Abdominal exam: Soft, Normal bowel sounds. negative: Tenderness - Extremities Extremities exam: Normal inspection, Full ROM, Normal capillary refill. negative: Tenderness - Back Back exam: Reports: Normal inspection - Neurological Neurological exam: Alert, Normal gait. negative: Abnormal gait, Motor sensory deficit - Psychiatric Psychiatric exam: negative: Anxious Assessment and Plan - Assessment and Plan (1) Pneumonia Current Visit: Yes Status: Acute Qualifiers: Pneumonia type: due to unspecified organism Laterality: right Lung location: middle lobe of lung Qualified Code(s): J18.1 - Lobar pneumonia, unspecified organism Base Code: J18.9 - PNEUMONIA, UNSPECIFIED ORGANISM Comment: 09/30/19 - CXR in ED- hyperinflation, small focal ground glass opacitiy RML, LLL - No home COPD maintenance medications, is not oxygen dependent - WBC 18.2--> 13.6--> 16.9 with relative neutrophil increase, procalcitonin 0.046 on admit --> 09/29 0.08-->09/30 0.064. Will change antibiotic today to Levaquin 500mg QD given incidental increase in procalcitonin and WBC (no change in steroid dosing) and less than half decrease in procalcitonin overnight - [id number]% RA - Duoneb Q4hr [place], Levaquin 500mg Q24hr Solumedrol 60mg QD - Tele- NSR - CBC am - Consider converting to Predisone in am and starting Breo in preparation for discharge - Sputum culture collected and pending (2) COPD (chronic obstructive pulmonary disease) Current Visit: Yes Status: Acute Base Code: J44.9 - CHRONIC OBSTRUCTIVE PULMONARY DISEASE, UNSPECIFIED Comment: 09/30/19 - Begin Breo tomorrow after antibiotic change and if clinical improvement - Nicotine patch 14mg QD (3) A-fib Current Visit: Yes Status: Acute Base Code: I48.91 - UNSPECIFIED ATRIAL FIBRILLATION Comment: 09/30/19 - Tele NSR - Eliquis 5mg BID, Cardizem CD 240mg QD, Flecanide 50mg BID (4) Weakness Current Visit: Yes Status: Acute Base Code: R53.1 - WEAKNESS Comment: 09/30/19 -PT eval today - Case management to discuss Swing Bed vs. home therapy for any needs (5) DVT prophylaxis Current Visit: Yes Status: Acute Base Code: Z29.9 - ENCOUNTER FOR PROPHYLACTIC MEASURES, UNSPECIFIED Comment: 09/30/19 - Eliquis 5mg BID (6) Full code status Current Visit: Yes Status: Acute Base Code: Z78.9 - OTHER SPECIFIED HEALTH STATUS Comment: 09/30/19 Results - Labs Result Diagrams: 09/30/19 06:10 09/29/19 06:49 Labs Last 24 Hours: Laboratory Results - last 24 hr 09/29/19 09/29/19 09/30/19 06:49 19:22 06:10 WBC 15.2 H RBC 4.31 L Hgb 12.2 L Hct 40.3 L MCV 93.5 MCH 28.3 MCHC 30.3 L RDW 13.9 Plt Count 346 MPV 9.8 Neutrophils % 81.0 H Band Neutrophils % 0.0 Lymphocytes % 5.6 L Monocytes % 8.6 Eosinophils % 0.0 Basophils % 0.0 Absolute Neutrophils 13.06 Lymphocytes 9.0 L Monocytes 10.0 H Basophils 0.0 Eosinophil Count 0.0 Procalcitonin 0.080 Urine Color Yellow Urine Appearance Clear Urine pH 5.5 Ur Specific Reynolds 1.025 Urine Protein Negative Urine Glucose (UA) Negative Urine Ketones Negative Urine Blood Small H Urine Nitrite Negative Urine Bilirubin Negative Urine Urobilinogen 0.2 Ur Leukocyte Esterase Negative Urine RBC 0 - 2 Urine WBC 0 - 2 Ur Epithelial Cells 0 - 2 09/30/19 06:20 WBC RBC Hgb Hct MCV MCH MCHC RDW Plt Count MPV Neutrophils % Band Neutrophils % Lymphocytes % Monocytes % Eosinophils % Basophils % Absolute Neutrophils Lymphocytes Monocytes Basophils Eosinophil Count Procalcitonin 0.064 Urine Color Urine Appearance Urine pH Ur Specific Reynolds Urine Protein Urine Glucose (UA) Urine Ketones Urine Blood Urine Nitrite Urine Bilirubin Urine Urobilinogen Ur Leukocyte Esterase Urine RBC Urine WBC Ur Epithelial Cells DVT/PE Assessment - Risk for VTE Risk for VTE: No Risk Level: Moderate Risk Assessment Date: 09/28/19 Risk Assessment Time: 13:39 VTE Orders Placed or Will Be Placed: Yes - Active Medicaitons Current Medications: Current Medications Acetaminophen (Tylenol 325mg) 650 mg PO Q6H PRN PRN Reason: PAIN - MILD(1-4)/FEVER Albuterol/Ipratropium (Duoneb) 3 ml INH RESP.Q4H.[facility] Last Admin: 09/30/19 10:03 Dose: 3 ml Documented by: Apixaban (Eliquis) 5 mg PO BID [facility] Last Admin: 09/30/19 09:27 Dose: 5 mg Documented by: Diltiazem HCl (Cardizem Cd) 240 mg PO DAILY [facility] Last Admin: 09/30/19 09:28 Dose: 240 mg Documented by: Diphenhydramine HCl (Benadryl Capsule) 25 mg PO QHS PRN PRN Reason: INSOMNIA Last Admin: 09/30/19 02:10 Dose: 25 mg Documented by: Flecainide Acetate (Flecainide Acetate) 50 mg PO BID [facility] Last Admin: 09/30/19 09:26 Dose: 50 mg Documented by: Levofloxacin/Dextrose (Levaquin 500mg Ivpb) 500 mg in 100 mls @ 125 mls/hr IVPB Q24H [facility] Stop: 10/05/19 10:01 Last Admin: 09/30/19 11:05 Dose: 125 mls/hr Documented by: Methylprednisolone Sodium Succinate (Solu-Medrol) 60 mg IVP DAILY [facility] Last Admin: 09/30/19 11:03 Dose: 60 mg Documented by: Miscellaneous (Remove Patch) 1 each TD Q24H [facility] Last Admin: 09/30/19 09:29 Dose: 1 each Documented by: Nicotine (Nicotine 21mg) 1 patch TD Q24H [facility] Last Admin: 09/30/19 09:28 Dose: 1 patch Documented by: AMI Plan - Labs Result Diagrams: 09/30/19 06:10 09/29/19 06:49
[2019-09-30] MEDS: NICOTINE14 MG/24 HOUR PATCH TD SCH (11:24)
--- NOTE | 2019-09-30 16:34 | Rehab Evaluation ---
Patient Information - Patient Information Diagnosis: Pneumonia Ordered Treatment: PT Evaluate and Treat Status: Initial Evaluation Surgery: No History: Detail (Pt drove himself to ED on 09/27/19 to have his blood pressure checked as he was feeling somewhat weak. He was admitted following x-rays indicating pneumonia.) Past Medical/Surgical Hx: PAST MEDICAL/SURGICAL HISTORY Past Surgical History kidney stones PMH - Respiratory Hx Respiratory Disorders Yes Hx Chronic Obstructive Yes Pulmonary Disease (COPD) PMH - Cardiovascular Hx Cardiovascular Disorders Yes Hx Hypertension Yes Hx Irregular Heartbeat Yes: afib PMH - Neuro Hx Neurological Disorders No PMH - GI Hx Gastrointestinal Disorders No PMH - Hx Genitourinary Disorders No PMH - Endocrine Hx Endocrine Disorders No PMH - Musculoskeletal Hx Musculoskeletal Disorders No PMH - Psych Hx Psychiatric Problems No PMH - Hematology/Oncology Hx Hematology/Oncology No Disorders Premorbid Status: Detail (Pt states he lives alone in a ground floor apartment with only one step to enter. He did not use assistive device to ambulate community distances/surfaces, and was independent with all self-care, household, and community activities, including driving. He has tub/shower combination and reports that he stands for showers; he does not think there are grab bars in the bathroom. He typically takes clothes to wash at a laundromat, does his own housecleaning and grocery shopping. He denies any recent history of falls.) Social History: Detail Precautions: [place], Fall - Time With Patient Total Time Spent With Patient (Min): 30 Treatment Procedures: Detail (PT Evaluation) Subjective Information - Subjective Information Per Patient (Pt sitting up in chair upon arrival; was sleeping, but awakened easily and was cooperative for therapy. He denied pain.) Objective Data - Pain Pain Present: No - Mental Status Patient Orientation: Oriented x3 - Visual Perception Appears within normal limits for therapeutic activities - ROM Within normal limits (WNL in B hips, knees, ankles.) - Strength/Tone Not within normal limits (Grossly 4-/5 strength in B hip flexion, extension, abduction, B knee extension; 4/5 in B hip adduction, knee flexion, ankle dorsiflexion.) - Coordination Appears within normal limits for therapeutic activities - Bed Mobility Independent - Transfers Independent - Balance Balance Sitting: Good Balance Standing: Fair (Somewhat unsteady w/o UE support. Tomas Balance test score was 41/56.) - Sensation Intact - Gait Detail (Pt ambulated with front wheeled walker from bedside out to harris to PACU doors and back to bedside, w/CGA/SBA (about 200 feet total). Patient was somewhat short of breath but recovered fairly quickly. He stated he felt more secure/steady with the walker and that he would like to have one if he goes home.) Therapy Assessment - Therapy Assessment Detail (Pt exhibits mild unsteadiness with gait and low risk for falls based on Tomas Balance test; he demonstrated safe use of front wheeled walker over level surfaces. He is likely to benefit from home physical therapy to ensure safety at home and to facilitate improvement in strength, balance, and endurance.) Problem List - Problem List Physical Therapy Problem List: Detail (1. Proximal lower extremity weakness bilaterally. 2. Impaired activity tolerance. 3. Impaired balance.) Goals - Goals Physical Therapy Goals: 1. Pt will safely and independently ambulate over household distances with front wheeled walker, including steps. 2. Pt will be independent in basic home exercise program for lower extremity strengthening. Prognosis - Prognosis Good Plan - Plan Physical Therapy Plan: Pt will be seen 1-2x tomorrow to facilitate independence with walking with walker, stair training, and instruction in home exercise program.
[2019-10-01] MEDS: IPRATROPIUM/ALBUTEROL (0.5MG/3MG) NEB INH SCH ×2 (06:15→10:40)
[2019-10-01 06:56] LABS: HEMOGLOBIN 11.9 gm/dl (14.0-18.0); MEAN CELL VOLUME 93.3 fl (81-97); MEAN CORPUSCULAR HGB CONC 30.5 g/dl (32-36); MEAN PLATELET VOLUME 9.8 fl (7.4-10.4); PLATELET COUNT 334 K/uL (130-400); RED BLOOD COUNT 4.18 M/uL (4.40-5.70); RED CELL DISTRIBUTION WIDTH 13.7 % (11.5-14.5); WHITE BLOOD COUNT W/O DIFF 10.2 K/uL (4.2-12.2)
[2019-10-01 07:04] LABS: MEAN CORPUSCULAR HEMOGLOBIN 28.4 pg (27-33)
--- NOTE | 2019-10-01 09:46 | Physical Therapy Tx Note ---
Physical Therapy Tx Note - Treatment Note Tolerated: Fair Total Time Spent With Patient: 20 Physical Therapy Tx Note: Detail (The patient was in the bathroom when PT arrived. The patient was independent with toilet transfer with use of grab bar. The patient was able to pull up his pants without assist. The patient ambulated 250 feet total with front wheeled walker with supervision for safety. The patient walked aprox. 50 feet without device due to his questioning why he need a walker. When ambulating without device the patient required CG due to frequent stagger steps ( the patient was able to right himself without intervention from PT). After ambulating without device the pt. stated" I do need the walker." PT explained to patient he was weak due to being ill and being in bed from a prolonged period of time. The patient ambulated on 3 steps with use of one r ailing with supervision for safety. The patient was instructed in LE strengthening exercises seated including: hip marching, knee extension, hip adduction and ankle pumps. The patient was issued written instructions. The patient had difficulty following simple commands and required constant redirection to stay on task. Due to patient's weakness and decreased balance Home PT is strongly recommended as well as supervision during ADL's.) Physical Therapy Problem List: Detail (1. Proximal lower extremity weakness bilaterally. 2. Impaired activity tolerance. 3. Impaired balance.) Physical Therapy Goals: 1. Pt will safely and independently ambulate over household distances with front wheeled walker, including steps. (Partially met - supervision on stairs for safety). 2. Pt will be independent in basic home exercise program for lower extremity strengthening. (Goal Met) Physical Therapy Plan: Pt will be seen 1-2x tomorrow to facilitate independence with walking with walker, stair training, and instruction in home exercise program.
[2019-10-01] MEDS ORDERED: DILTIAZEM 240 MG CAP CR PO SCH (10:00)
--- NOTE | 2019-10-01 10:37 | Discharge Summary ---
Providers Discharge Summary Date: 10/01/19 Date of admission: 09/27/19 18:56 Attending physician: SOULEYMANE BOWEN Primary care physician: Barrett Tirado Consults: Consult Orders 09/29/19 17:43 Consult - Case Management NOW Comment: Reason For Exam: After discharge care Physical Exam - Vital Signs Vital Signs: Vital Signs - Last 24 Hrs Temp Pulse Pulse Resp BP BP BP 10/01/19 08:10 98.0 F 72 26 H 145/75 10/01/19 06:15 77 20 10/01/19 06:00 98.5 F 76 20 167/76 10/01/19 02:15 98.8 F 85 18 164/70 09/30/19 22:26 09/30/19 22:24 86 20 175/73 09/30/19 21:47 87 20 09/30/19 21:00 98.0 F 86 20 174/77 09/30/19 18:30 82 18 09/30/19 17:45 99.0 F 89 16 186/110 09/30/19 15:08 98.9 F 153/66 09/30/19 14:05 88 26 H 09/30/19 13:00 98.9 F 84 16 153/66 Pulse Ox 10/01/19 08:10 93 L 10/01/19 06:15 92 L 10/01/19 06:00 92 L 10/01/19 02:15 95 09/30/19 22:26 89 L 09/30/19 22:24 89 L 09/30/19 21:47 09/30/19 21:00 96 09/30/19 18:30 94 L 09/30/19 17:45 90 L 09/30/19 15:08 09/30/19 14:05 09/30/19 13:00 91 L - General General Appearance: Alert, Oriented x3, Cooperative, No acute distress Limitations: No limitations - Head Head exam: Atraumatic, Normocephalic, Normal inspection - Eye Eye exam: Normal appearance, PERRL - ENT Throat exam: Normal inspection. negative: Tonsillar erythema, Tonsillar exudate - Neck Neck exam: Normal inspection, Full ROM. negative: Tenderness - Respiratory Respiratory exam: Decreased breath sounds. negative: Normal lung sounds bilaterally, Accessory muscle use, Respiratory distress, Stridor, Wheezes - Cardiovascular Cardiovascular Exam: Regular rate, Normal rhythm, Normal heart sounds Peripheral Pulses: 2+: Dorsalis Pedis (R), Dorsalis Pedis (L) - GI/Abdominal GI/Abdominal exam: Soft, Normal bowel sounds. negative: Tenderness - Extremities Extremities exam: Normal inspection, Full ROM, Normal capillary refill. negative: Tenderness - Back Back exam: Reports: Normal inspection - Neurological Neurological exam: Alert, Normal gait. negative: Abnormal gait, Motor sensory deficit - Psychiatric Psychiatric exam: negative: Anxious Hospitalization - Hospitalization Admission Diagnosis: 1. Acute Pneumonia - Problem List/Discharge Diagnosis (1) Pneumonia Current Visit: Yes Status: Acute Discharge Diagnosis: Pneumonia type: due to unspecified organism Laterality: right Lung location: middle lobe of lung Qualified Code(s): J18.9 - Pneumonia, unspecifi ed organism Base Code: J18.9 - PNEUMONIA, UNSPECIFIED ORGANISM Comment: 10/01/19 - CXR in ED- hyperinflation, small focal ground glass opacitiy RML, LLL - No home COPD maintenance medications, is not oxygen dependent - WBC 18.2--> 13.6--> 16.9 with relative neutrophil increase, procalcitonin 0.046 on admit --> 09/29 0.08-->09/30 0.064 -->10/01 0.055 - [id number]% RA - Duoneb Q4hr WA, Levaquin 500mg Q24hr, change to Doxycline for cardiac protection at time of discharge, Solumedrol 60mg QD - Tele- NSR - Sputum culture collected and pending (2) COPD (chronic obstructive pulmonary disease) Current Visit: Yes Status: Acute Base Code: J44.9 - CHRONIC OBSTRUCTIVE PULMONARY DISEASE, UNSPECIFIED Comment: 10/01/19 - Begin Breo tomorrow after antibiotic change and if clinical improvement - Nicotine patch 14mg QD (3) A-fib Current Visit: Yes Status: Acute Base Code: I48.91 - UNSPECIFIED ATRIAL FIBRILLATION Comment: 10/01/19 - Tele NSR - Eliquis 5mg BID, Cardizem CD 240mg QD, Flecanide 50mg BID (4) Weakness Current Visit: Yes Status: Acute Base Code: R53.1 - WEAKNESS Comment: 10/01/19 -PT eval, recommend home PT/OT (5) DVT prophylaxis Current Visit: Yes Status: Acute Base Code: Z29.9 - ENCOUNTER FOR PROPHYLACTIC MEASURES, UNSPECIFIED Comment: 10/01/19 - Eliquis 5mg BID (6) Full code status Current Visit: Yes Status: Acute Base Code: Z78.9 - OTHER SPECIFIED HEALTH STATUS Comment: 10/01/19 - Hospitalization Course Disposition: Critical Access Hospital Service Hospital Course: 78 y/o male presented to ED for reports of feeling weak and more tired than normal and wanted his blood pressure checked. Upon arrival he was observed to be short of breath and was worked up. Patient denied fevers or chills, does have a chronic cough but reported it was not different than usual. Does report a baseline shortness of breath but reports is not any worse than usual. Is a current every day smoker- 1/2 PPD. Past medical history includes cigarette smoker, COPD, HTN, a-fib and subjective reports of weight loss. While in ED was afebile, dyspneic with RR 28, pulse 101, BP 177/92, SPO2 93% RA. WBC 18.2 with neutrophils 89. Coag panel normal. Troponin <0.010. Procalcitonin 0.046. CXR- hyperinflated lungs with small focal round glass opacities RML and LLL. EKG NSR with left atrial enlargement and right ventricular hypertrophy, no acute changes from previous. Admitted for IV antibiotics, IV steroids. 09/28/19- sitting in chair, in no obvious distress, no new complaints. Reports his cough is no different than it usually is. Is feeling a little weak but otherwise feels his baseline. Is not oxygen dependent. Has not smoked in 2 days 10/01/19- Hospital course relatively unremarkable. VSS remained stable, Telemetry remained NSR. Azithromycin and Rocephin changed to Levaquin 48 hours prior to discharge due to slow clinical improvement and interval increase of procalcitonin and WBC with relative increase in neutrophils. Day of discharge procalcitonin did drop to 0.055, WBC normalized, and patient felt better. Breo and Spiriva initiated for discharge as he was not on any home COPD controller medications. He was evaluated by PT for generalized weakness 2/2 acute illness and was set up with a walker for home ambulation assist and home PT for continued outpatient therapy. Advised he should not drive until he felt stronger and when PT recommend it would be safe to do so as well as advised he not resume smoking cigarettes. Procedures: Imaging and X-Rays 09/27/19 17:04 CHEST 2 VIEWS [RAD] Stat Cardiology Procedures 09/27/19 17:04 EKG NOW 09/28/19 10:11 Telemetry [Photography Intern] .Continuous Abnormal Labs: Abnormal Lab Results 09/27/19 09/27/19 09/28/19 Range/Units 16:20 16:20 06:15 WBC 18.2 H 13.6 H (4.2-12.2) K/uL RBC 4.24 L (4.40-5.70) M/uL Hgb 12.2 L (14.0-18.0) gm/dl Hct 38.9 L (42.0-52.0) % MCHC 31.5 L 31.4 L (32-36) g/dl Neutrophils % 89.0 H (47-80) % Lymphocytes % 6.3 L 2.7 L (16-45) % Lymphocytes 5.0 L (16-45) % Monocytes (0-9) % Potassium (3.4-4.5) mmol/L Carbon Dioxide 32.0 H (22-29) mmol/L BUN (8-23) mg/dL Random Glucose (74-109) mg/dL Total Bilirubin (0.2-1.0) mg/dL Albumin (4.0-5.0) g/dL Urine Blood (NEGATIVE) 09/28/19 09/29/19 09/29/19 Range/Units 06:15 06:49 06:49 WBC 16.9 H (4.2-12.2) K/uL RBC 4.07 L (4.40-5.70) M/uL Hgb 11.7 L (14.0-18.0) gm/dl Hct 37.8 L (42.0-52.0) % MCHC 31.0 L (32-36) g/dl Neutrophils % 92.0 H (47-80) % Lymphocytes % (16-45) % Lymphocytes 2.0 L (16-45) % Monocytes (0-9) % Potassium 4.7 H (3.4-4.5) mmol/L Carbon Dioxide (22-29) mmol/L BUN 31 H (8-23) mg/dL Random Glucose 143 H 119 H (74-109) mg/dL Total Bilirubin < 0.20 L (0.2-1.0) mg/dL Albumin 3.9 L (4.0-5.0) g/dL Urine Blood (NEGATIVE) 09/29/19 09/30/19 10/01/19 Range/Units 19:22 06:10 06:26 WBC 15.2 H (4.2-12.2) K/uL RBC 4.31 L 4.18 L (4.40-5.70) M/uL Hgb 12.2 L 11.9 L (14.0-18.0) gm/dl Hct 40.3 L 39.0 L (42.0-52.0) % MCHC 30.3 L 30.5 L (32-36) g/dl Neutrophils % 81.0 H 81.0 H (47-80) % Lymphocytes % 5.6 L (16-45) % Lymphocytes 9.0 L 9.0 L (16-45) % Monocytes 10.0 H (0-9) % Potassium (3.4-4.5) mmol/L Carbon Dioxide (22-29) mmol/L BUN (8-23) mg/dL Random Glucose (74-109) mg/dL Total Bilirubin (0.2-1.0) mg/dL Albumin (4.0-5.0) g/dL Urine Blood Small H (NEGATIVE) Condition at Discharge: (2) Stable Discharge Medications - Discharge Medications Prescriptions: Fluticasone/Vilanterol [Breo Ellipta 100-25 Mcg INH] 1 each IH DAILY #1 aer.pow.ba Doxycycline Hyclate 100 mg PO BID 10 Days #20 cap Prednisone [Prednisone 20Mg] 20 mg PO BID 5 Days #10 tab Tiotropium [place] [Spiriva] 1 cap IH DAILY #1 cap.w.dev Home Medications: Ambulatory Orders Albuterol Sulfate [Proair Hfa] 1 - 2 puff IH .EVERY 4-6 HOURS PRN 03/14/19 [Last Taken 09/27/19] Apixaban [Eliquis] 5 mg PO BID 03/14/19 [Last Taken 09/27/19] Diltiazem HCl [Cardizem Cd] 240 mg PO DAILY 09/28/19 [Last Taken Unknown] Flecainide Acetate 50 mg PO BID 09/28/19 [Last Taken Unknown] Doxycycline Hyclate 100 mg PO BID 10 Days #20 cap 10/01/19 [Last Taken Unknown] Fluticasone/Vilanterol [Breo Ellipta 100-25 Mcg INH] 1 each IH DAILY #1 aer.pow.ba 10/01/19 [Last Taken Unknown] Prednisone [Prednisone 20Mg] 20 mg PO BID 5 Days #10 tab 10/01/19 [Last Taken Unknown] Tiotropium [place] [Spiriva] 1 cap IH DAILY #1 cap.w.dev 10/01/19 [Last Taken Unknown] Discharge Plan - Discharge Instructions Activity at Discharge: As Per Physical Therapy, Increase Activity as Tolerated Diet at Discharge: Advance to Usual Diet Additional Instructions: Follow up with Dr. Tirado on Friday as scheduled. If you cancel this appointment, please see him within 1 week. [facility] Wesley will see you at home for visiting physical therapy and nursing. They can be reached 16/06 at [phone]. Quality Measures - Quality Measures Quality Measures: Atrial Fibrillation & Atrial Flutter: Chronic Anticoagulation Therapy, Advance Directives, Documentation of Current Medications in Medical Record, Elder Maltreatment Screen and Follow-Up Plan, Screening for High Blood Pressure and F/U Documented - Current Medications Quality Measure: Measure #130: Documentation of Current Medications Documentation of Current Medications: <Current Medications Documented/Reviewed> [G8427] - Blood Pressure Screening Quality Measure: Screening for High Blood Pressure and Follow-Up Documented Does Patient Have Any of the Following: No Blood Pressure Classification: Hypertensive Reading Systolic Measurement: 153 Diastolic Measurement: 66 Screening for High Blood Pressure: < Pre-Hypertensive BP, F/U Documented > [G8950] Pre-Hypertensive Follow-up Interventions: Follow-up with rescreen every year. - Atrial Fibrillation and Atrial Flutter Quality Measure: Atrial Fibrillation & Atrial Flutter: Chronic Anticoagulation Therapy Does Patient Have Any of the Following: No CHADS2 Risk Stratification: Age 75 or Greater, Hypertension Risk Stratification Summary: One or more high risk factors OR more than one moderate risk factor exists. [G8972] Anticoagulation Therapy: <Oral anticoagulant Prescribed> [G8967] - Advance Directives Quality Measure: Measure #47: Care Plan Advance Directives Established: No Advance Directives Information Provided To Patient: No Advance Directives on File: No Living Will: No Power of Tc Operator: No Advance Care Planning: <Care Plan/Decision Maker Documented; Discussed & Documented> [1283F] - Elder Abuse Suspicion Index Screening: Elder Abuse Suspicion Index Screening Rely on people for bathing, dressing, shopping, banking, etc: No Prevented from getting food, clothes, medication, etc: No Made to feel shamed or threatened by someone: No Forced to sign papers or use money against will: No Feel afraid, touched in ways not wanted or hurt physically: No Poor eye contact, withdrawn, malnourished, cuts or bruises: No Screening Result: Negative result EASI Reference Information: Jody SIDDIQI, Tea C, Beth D, Trell Cabral.Development and validation of a tool to assist physicians identification of elder abuse: The Elder Abuse Suspicion Index (EASI ). Journal of Elder Abuse and Neglect, 2008; 20 (3): 276-300. - Elder Maltreatment Screen Quality Measures: Elder Maltreatment Screen and Follow-Up Plan Elder Maltreatment Screen: <Negative, No Follow-Up Plan Required> [E9643]
[2019-10-01] MEDS: METHYLPREDNISOLONE PF 125MG/VIAL IVP SCH (11:34)
[2019-10-01] MEDS: NICOTINE 21 MG/24 HOUR PATCH TD SCH (11:35)
[2019-10-01] MEDS: LEVOFLOXACIN 500MG IVPB 500 MG/100 ML BAG IVPB SCH ×2 (11:35→12:18)
[2019-10-01] MEDS: REMOVE PATCH 1 EACH MISC TD SCH (11:35)
[2019-10-01] MEDS: APIXABAN 5MG TABLET PO SCH (11:35)
[2019-10-01] MEDS: FLECAINIDE ACETATE 50 MG TABLET PO SCH (11:35)
== END 2019-10-01 15:25 | disposition home health service (06) | DRG 195 ==
LOC: ER 16:09 → MEDSURG 18:56
PROVIDERS: ADMIT Internal Medicine; ATTEND Internal Medicine
DX: J18.9 Pneumonia, unspecified organism (principal); J44.9 Chronic obstructive pulmonary disease, unspecified; R53.1 Weakness; I48.91 Unspecified atrial fibrillation; Z79.01 Long term (current) use of anticoagulants; R05 Cough; F17.210 Nicotine dependence, cigarettes, uncomplicated; Z87.442 Personal history of urinary calculi
CPT/HCPCS: 71046; 80048; 80053; 81001; 83880; 84145; 84484; 85025; 85027; 85610; 85730; 86140; 87070; 93005; 93010; 94640; 94760; 94761; 96365; 96374; 99223; 99233; 99239; 99285; J0456; J0696; J1956; J2930; J7050; J7613